=== PATIENT | male | born 1995 | race Caucasian/White ===

== ENCOUNTER 2023-05-07 09:45 | Outpatient (RCR) | payer SELFPAY, OTHER ==
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
== END 2023-05-07 19:00 | disposition home or self-care (01) ==
LOC: PT 09:45
PROVIDERS: Visit Provider Physician Assistant
DX: S46.012D Strain of muscle(s) and tendon(s) of the rotator cuff of left shoulder, subsequent encounter (principal)
CPT/HCPCS: 97162; 97530